=== PATIENT | female | born 1950 | race Caucasian/White ===

== ENCOUNTER → 2017-12-17 09:24 | Outpatient (CLI) | payer MEDICARE, OTHER, SELFPAY ==
--- NOTE | 2017-12-17 | DI.MRI.S_ITS ---
PROCEDURE: MR CERVICAL SPINE WO CON INDICATIONS: Cervicalgia TECHNIQUE: Noncontrast sagittal T1 spin echo and T2 fast spin echo, sagittal STIR, foraminal oblique sagittal T2 fast spin echo, and axial gradient echo or T2 fast spin echo through the cervical spine. COMPARISON: None. FINDINGS: Image quality: Diagnostic, with note made of motion artifact. Alignment and Curvature: There is mild reversal of the normal cervical lordosis, with the apex at the C5-C6 level. Minimal anterolisthesis is seen at C4-C5 and there is minimal retrolisthesis seen at C5-C6. Bone Marrow: Marrow demonstrates normal overall signal. Spinal Cord: Visualized spinal cord has normal size and signal. No cerebellar tonsillar herniation. Paraspinous Soft Tissues: No paravertebral masses. Prevertebral soft tissues are normal in thickness. C2-C3: The disc height is relatively well-preserved. Minimal to osteophyte complex is seen. There is mild right-sided and moderate left-sided facet hypertrophy seen. There is moderate left-sided and no right-sided neural foraminal narrowing seen. No significant central canal narrowing is seen. C3-C4: Moderate loss of disc height is seen. Moderate generalized disc osteophyte complex is seen. Uncovertebral joint hypertrophy is seen at this level. Moderate facet joint hypertrophy is seen. There is moderate to severe right-sided and moderate left-sided neural foraminal narrowing seen. [id number]-uw-upfnocde central canal narrowing is seen. C4-C5: At least moderate loss of disc height is seen. Moderate generalized disc osteophyte complex is seen. Uncovertebral joint hypertrophy is seen at this level. There is mild to moderate right-sided and moderate left-sided facet hypertrophy seen. There is mild to moderate right-sided and moderate left-sided neural foraminal narrowing. Mild central canal narrowing is seen. C5-C6: At least moderate loss of disc height is seen. Moderate disc osteophyte complex is seen, which is eccentric to the left. Uncovertebral joint hypertrophy is seen at this level. Moderate facet joint hypertrophy is seen. There is moderate to severe bilateral neural foraminal narrowing. Moderate to severe central canal narrowing is seen, with associated mass effect upon the ventral spinal cord. C6-C7: The disc height is relatively well-preserved. Moderate generalized disc osteophyte complex is seen. Uncovertebral joint hypertrophy is seen at this level. [id number] facet hypertrophy is seen. There is moderate bilateral neural foraminal narrowing seen. [id number] central canal narrowing is seen. C7-T1: The disc height is well-preserved. Mild to moderate disc osteophyte complex is seen. There is mild bilateral neural foraminal narrowing seen. No significant central canal narrowing is seen. IMPRESSION: Multiple levels of cervical spine degenerative change are seen, which are most prominent at the C5-C6 level. Dictated by: Neil Zamorano M.D. on 12/17/2017 at 10:07 Approved by: Neil Zamorano M.D. on 12/17/2017 at 10:34
== END ==
PROVIDERS: Visit Provider Specialist
DX: M50.322 Other cervical disc degeneration at C5-C6 level (principal)
CPT/HCPCS: 72141